=== PATIENT | male | born 1945 | race Two or more races ===

== ENCOUNTER 2023-10-10 14:47 | Inpatient (IN) | payer MEDICARE, OTHER ==
[~2023-10-10] VITALS: Ht 165.1 cm; Wt 50.3 kg
--- NOTE | 2023-10-10 14:50 | NUR ---
bibpa frm [facility] more altered than normal. unknown last known well. abdominal pain 05/21.
[2023-10-10] MEDS ORDERED: MORPHINE SULFATE INJ 4 MG/ML DISP.SYRIN ONE (15:19)
[2023-10-10] MEDS ORDERED: ONDANSETRON HCL/PF 4 MG/2 ML VIAL ONE (15:19)
[2023-10-10] MEDS: ONDANSETRON HCL/PF 4 MG/2 ML VIAL IVP ONE (15:31)
[2023-10-10] MEDS: MORPHINE SULFATE INJ 2 MG/ML DISP.SYRIN IV ONE (15:33)
[2023-10-10 15:34] LABS: BASOPHILS % (AUTO) 0.3 % (0.0-2.0); HEMATOCRIT 35 % (39-51); HEMOGLOBIN 11.3 g/dL (13.5-17.5); LYMPHOCYTES # (AUTO) 0.7 K/uL (0.8-4.8); LYMPHOCYTES % (AUTO) 6.2 % (20.0-44.0); MEAN CORPUSCULAR HEMOGLOBIN 28 PG (26.0-33.0); MEAN CORPUSCULAR HGB CONC 32 g/dl (31.0-36.0); MEAN CORPUSCULAR VOLUME 87 fL (80-96); MONOCYTES # (AUTO) 0.8 K/uL (0.1-1.30); MONOCYTES % (AUTO) 7.1 % (2.0-12.0); NEUTROPHILS # (AUTO) 9.6 K/uL (1.8-8.9); NEUTROPHILS % (AUTO) 86.4 % (43.0-81.0); PLATELET COUNT (AUTO) 228 K/uL (150-450); RED BLOOD CELL COUNT(AUTO) 4.03 MIL/uL (4.5-6.0); RED CELL DISTRIBUTION WIDTH 14.5 % (11.5-15.0); WHITE BLOOD COUNT (AUTO) 11.2 K/uL (4.3-11.0)
--- NOTE | 2023-10-10 15:35 | NUR ---
BLOOD DRAWN AND SENT TO LAB
--- NOTE | 2023-10-10 16:10 | NUR ---
URINE SAMPLE SENT TO LAB
[2023-10-10 16:53] LABS: APPEARANCE,URINE Slightly Cloudy (CLEAR); BILIRUBIN,URINE Negative (NEGATIVE); BLOOD, URINE Moderate Ery/uL (NEGATIVE); COLOR,URINE YELLOW (YELLOW); KETONES,URINE Negative (NEGATIVE); LEUKOCYTE ESTERASE ,URINE Small (NEGATIVE); NITRITE, URINE Negative (NEGATIVE); PH,URINE 5.5 (5.0-8.0); PROTEIN,URINE Negative (NEGATIVE); UGLUCOSE Negative (NEGATIVE); UROBILINOGEN,URINE 0.2 EU/dL (0.2)
[2023-10-10 17:00] LABS: WBC,URINE 21-50 /HPF (0-3)
--- NOTE | 2023-10-10 17:00 | NUR ---
INSERTED JOSEPH CATH FR-16 DRAINING TO A YELLOW CLEAR URINE OUTPUT, 1200MLS IN AMOUNT.
[2023-10-10 17:02] LABS: ADD URINE CULTURE YES; BACTERIA,URINE 1+ /HPF (None Seen); MUCUS,URINE Few /LPF (None Seen); SPERM,URINE Rare /HPF (None Seen); SQUAMOUS EPITHELIAL CELL,UR 0-2 /HPF (None Seen)
--- NOTE | 2023-10-10 17:07 | NUR ---
MOVE SHEET SUBMITTED.
[2023-10-10 17:12] LABS: ALANINE AMINOTRANSFERASE 16 U/L (12-78); ALBUMIN 2.3 g/dL (3.4-5.0); ALCOHOL, BLOOD < 3 mg/dL (0-10); ALKALINE PHOSPHATASE 79 U/L (46-116); ASPARTATE AMINOTRANSFERASE 13 U/L (15-37); BILIRUBIN,DIRECT 0.2 mg/dL (0.0-0.2); BILIRUBIN,TOTAL 0.4 mg/dL (0.2-1.0); CALCIUM, SERUM 8.4 mg/dL (8.5-10.1); CARBON DIOXIDE 19 mmol/L (21-32); CHLORIDE 103 mmol/L (98-107); GLUCOSE 123 mg/dL (74-106); LIPASE 65 U/L (16-77); POTASSIUM 6.2 mmol/L (3.5-5.1); SODIUM SERUM 139 mmol/L (136-145); TOTAL PROTEIN, SERUM 7.8 g/dL (6.4-8.2)
[2023-10-10 17:12] LABS: AMPHETAMINE, URINE NEGATIVE (NEGATIVE); BARBITURATE, URINE NEGATIVE (NEGATIVE); BENZODIAZEPINE, URINE NEGATIVE (NEGATIVE); CANNABINOID, URINE NEGATIVE (NEGATIVE); COCCAINE, URINE NEGATIVE (NEGATIVE); OPIATE, URINE NEGATIVE (NEGATIVE); PHENCYCLIDINE SCREEN,URINE NEGATIVE (NEGATIVE)
[2023-10-10 17:13] LABS: ACETAMINOPHEN <10 ug/ml (10-30)
[2023-10-10] MEDS ORDERED: CEFTRIAXONE 1GM BAG (ER ONLY) 50 ML IV ONE (17:17)
[2023-10-10] MEDS: CEFTRIAXONE 1GM BAG (ER ONLY) 1 GM/50 ML PIGGYBACK IV ONE (17:20)
[2023-10-10] MEDS ORDERED: AMLO10TA4 PO (17:21)
[2023-10-10] MEDS ORDERED: CARV6.25 PO (17:21)
[2023-10-10] MEDS ORDERED: ONDA4TAB5 PO (17:21)
[2023-10-10] MEDS ORDERED: DONE5TAB34 PO (17:21)
[2023-10-10] MEDS ORDERED: ACET-868 PO (17:21)
[2023-10-10] MEDS ORDERED: OLAN5TAB3 PO (17:21)
--- NOTE | 2023-10-10 17:22 | NUR ---
[facility] CALLED, DEVELOPMENT LEAD PAGED.
[2023-10-10 17:25] LABS: CREATININE 14.7 mg/dL (0.6-1.3); UREA NITROGEN, BLOOD 175 mg/dL (7-18)
--- NOTE | 2023-10-10 17:25 | NUR ---
GOT BED 117-2 ADMITTING INFORMED.
[2023-10-10] MEDS ORDERED: CALCIUM CHLORIDE 1,000 MG/10 ML DISP.SYRIN ONE (17:26)
[2023-10-10] MEDS ORDERED: DEXTROSE 50%-WATER 50 ML DISP.SYRIN ONE (17:26)
[2023-10-10] MEDS ORDERED: INSULIN REGULAR, HUMAN 100 UNIT/ML 10 ML VIAL ONE (17:27)
--- NOTE | 2023-10-10 17:30 | NUR ---
ADDITIONAL URINE OUTPUT 1100MLS.
[2023-10-10] MEDS: INSULIN REGULAR, HUMAN 100 UNIT/ML 10 ML VIAL IV ONE (17:31)
[2023-10-10] MEDS: DEXTROSE 50%-WATER 50 ML DISP.SYRIN IV ONE (17:31)
[2023-10-10] MEDS: CALCIUM CHLORIDE 1,000 MG/10 ML DISP.SYRIN IV ONE (17:35)
--- NOTE | 2023-10-10 17:45 | NUR ---
PATIENT TAKEN TO CT VIA DAVE
[2023-10-10] MEDS ORDERED: SODIUM ZIRCONIUM CYCLOSILICATE 10 GM POWD.PACK ONE (17:47)
--- NOTE | 2023-10-10 18:00 | NUR ---
ADDITIONAL URINE OUTPUT 1000MLS
[2023-10-10] MEDS: SODIUM ZIRCONIUM CYCLOSILICATE 10 GM POWD.PACK PO ONE (18:10)
--- NOTE | 2023-10-10 18:18 | NUR ---
REPORT GIVEN TO YOGESH REYES ROOM 117-2 FOR CHRIS
--- NOTE | 2023-10-10 18:20 | NUR ---
RN NOTE RECEIVED REPORT FROM ER NURSE MARCO ANTONIO, AWAITING PT ARRIVAL TO UNIT.
[2023-10-10] MEDS ORDERED: ONDANSETRON HCL/PF 4 MG/2 ML VIAL IVP PRN (18:30)
[2023-10-10] MEDS ORDERED: MAGNESIUM HYDROXIDE 30 ML UDC PO PRN (18:30)
[2023-10-10] MEDS ORDERED: Z GUARD REMEDY 4 OZ OINT TP PRN (18:30)
[2023-10-10] MEDS ORDERED: MAG HYDROX/AL HYDROX/SIMETH 30 ML UDC PO PRN (18:30)
[2023-10-10] MEDS ORDERED: ACETAMINOPHEN 325 MG TABLET PO PRN (18:30)
--- NOTE | 2023-10-10 18:30 | NUR ---
PATIENT TRANSFERED AND ADMITTED PER [facility]S PROTOCOL
--- NOTE | 2023-10-10 18:45 | NUR ---
RN NOTE RECEIVED PT IN ROOM 117-2 FROM ER VIA [employer]. PT A/O X1. ON ROOM AIR, TOLERATING WELL, SATING 99%. NO S/S OF SOB NOTED AT THIS TIME. PT PLACED ON TELE MONITOR, CURRENTLY READING SR, HR 66 BPM. IV ACCESS ON LFA 20G, PATENT AND INTACT, SL. PT WITH JOSEPH CATH IN PLACE DRAINING URINE VIA GRAVITY. V/S STABLE; BP 127/73, HR 67, TEMP 97.5, RR 12, O2 SAT 99%. SKIN CHECKED, INTACT. PT CLEAN AND DRY. SAFETY MEASURES IMPLEMENTED, BED IN LOWEST LOCKED POSITION, BED ALARM ON, SIDE RAILS UP X3, CALL LIGHT WITHIN REACH. WILL ENDORSE TO ONCOMING SHIFT FOR CHRIS.
[2023-10-10] MEDS: SODIUM POLYSTYRENE SULFONATE 15 G/60 ML BOTTLE PO ONE (19:00)
--- NOTE | 2023-10-10 19:00 | NUR ---
RN NOTE 1830 KAYEXELATE NOT GIVEN BECAUSE PT UNABLE TO STAY ALERT TO SWALLOW.
--- NOTE | 2023-10-10 19:40 | NUR ---
HUMAN RESOURCE OFFICER OPENING NOTE RECEIVED PT IN BED, EYE CLOSE, EASILY AROUSE BY VERBAL/ TACTILE STIMULI. A/O X1, WITH CONFUSION, UNABLE TO ANSWER SIMPLE QUESTIONS. CURRENTLY ON ROOM AIR, TOLERATING WELL, SATING 98%. NO S/S OF SOB NOTED AT THIS TIME. ON TELE MONITOR, CURRENTLY READING SR, HR 74BPM. WITH IV ACCESS ON LFA 20G, PATENT AND INTACT, INFUSING 1/2 NS @125ML/HR. ON JOSEPH CATH IN PLACE DRAINING URINE VIA GRAVITY. ALL SAFETY MEASURES IMPLEMENTED, BED IN LOWEST LOCKED POSITION, BED ALARM ON, SIDE RAILS UP X3, CALL LIGHT WITHIN REACH. WILL CONTINUE CURRENT PLAN OF CARE.
[2023-10-10 20:00] VITALS: BP 123/68; TEMP 98; O2SAT 95
[2023-10-10] MEDS: IV 1/2NS 1000 ML 1,000 ML IV PRN (22:29)
[2023-10-11] VITALS: BP 118/80; TEMP 98.2; O2SAT 97
[2023-10-11 06:00] VITALS: BP 153/86; TEMP 97.9; O2SAT 98
[2023-10-11 06:40] LABS: BASOPHILS % (AUTO) 0.2 % (0.0-2.0); EOSINOPHILS % (AUTO) 0.1 % (0.0-6.0); HEMATOCRIT 36 % (39-51); HEMOGLOBIN 11.6 g/dL (13.5-17.5); LYMPHOCYTES # (AUTO) 0.9 K/uL (0.8-4.8); MEAN CORPUSCULAR HEMOGLOBIN 28 PG (26.0-33.0); MEAN CORPUSCULAR HGB CONC 32 g/dl (31.0-36.0); MEAN CORPUSCULAR VOLUME 86 fL (80-96); MONOCYTES # (AUTO) 0.5 K/uL (0.1-1.30); MONOCYTES % (AUTO) 6.2 % (2.0-12.0); NEUTROPHILS # (AUTO) 6.3 K/uL (1.8-8.9); NEUTROPHILS % (AUTO) 81.5 % (43.0-81.0); PLATELET COUNT (AUTO) 239 K/uL (150-450); RED BLOOD CELL COUNT(AUTO) 4.17 MIL/uL (4.5-6.0); RED CELL DISTRIBUTION WIDTH 14.7 % (11.5-15.0); WHITE BLOOD COUNT (AUTO) 7.8 K/uL (4.3-11.0)
[2023-10-11 06:55] LABS: CALCIUM, SERUM 9.3 mg/dL (8.5-10.1); CARBON DIOXIDE 20 mmol/L (21-32); CHLORIDE 107 mmol/L (98-107); GLUCOSE 77 mg/dL (74-106); MAGNESIUM 3.2 mg/dL (1.8-2.4); PHOSPHORUS 7.2 mg/dL (2.5-4.9); POTASSIUM 4.9 mmol/L (3.5-5.1); SODIUM SERUM 144 mmol/L (136-145)
[2023-10-11 06:59] LABS: CREATININE 8.4 mg/dL (0.6-1.3); UREA NITROGEN, BLOOD 125 mg/dL (7-18)
--- NOTE | 2023-10-11 07:04 | NUR ---
SEWER AND CUTTER FINGER BUFF MATERIAL CLOSING NOTE PATIENT IN BED, AWAKE, REMAINS STABLE WITHIN THE SHIFT. A/O X1, WITH CONFUSION, TOLERATING ROOM AIR, TOLERATING WELL, SATING 97%. NO SOB NOTED AT THIS TIME. ON TELE MONITOR, CURRENTLY READING SR, HR 78BPM. INTACT IV ACCESS ON LFA 20G, PATENT AND INTACT, INFUSING 1/2 NS @125ML/HR. ON JOSEPH CATH IN PLACE DRAINING URINE VIA GRAVITY [id number]. ALL DUE MEDS GIVEN ORDERED. CLEANED AND REPOSITIONED. KEPT BED IN LOWEST LOCKED POSITION, BED ALARM ON, SIDE RAILS UP X3, CALL LIGHT WITHIN REACH. WILL ENDORSE TO INCOMING SHIFT RN.
--- NOTE | 2023-10-11 07:05 | NUR ---
RN OPENING NOTES RECEIVED PT IN BED, A/O X1. ON ROOM AIR, TOLERATING WELL. NO S/S OF SOB NOTED AT THIS TIME. ON TELE MONITOR, CURRENTLY READING SR, HR 72 BPM. IV ACCESS ON LFA 20G, PATENT AND INTACT, CURRENTLY RUNNING 1/2 NS @ 125ML/HR. WITH JOSEPH CATH IN PLACE DRAINING URINE VIA GRAVITY. SAFETY MEASURES IMPLEMENTED, BED IN LOWEST LOCKED POSITION, BED ALARM ON, SIDE RAILS UP X3, CALL LIGHT WITHIN REACH. WILL CONTINUE PLAN OF CARE.
[2023-10-11] MEDS ORDERED: PANTOPRAZOLE 40 MG TABLET.DR PO SCH (07:30)
[2023-10-11 08:00] VITALS: BP 149/93; TEMP 98.3; O2SAT 94
[2023-10-11] MEDS: PANTOPRAZOLE 40 MG VIAL IV SCH (09:48)
[2023-10-11] MEDS ORDERED: ACETAMINOPHEN 325 MG TABLET PO PRN (13:00)
[2023-10-11] MEDS ORDERED: Medication Not On Formulary EA (Ondansetron Hcl (Zofran) 4 MG) PO PRN (13:00)
[2023-10-11 16:00] VITALS: BP 128/83; TEMP 98.3; O2SAT 97
[2023-10-11] MEDS: CARVEDILOL 6.25 MG TABLET PO SCH (16:19)
[2023-10-11] MEDS: CEFTRIAXONE 1 G in IV D5W 50 ML IV SCH (16:19)
--- NOTE | 2023-10-11 18:38 | NUR ---
RN CLOSING NOTES PT IN BED, A/O X2. ON ROOM AIR, SATING 95%, TOLERATING WELL. NO S/S OF SOB NOTED AT THIS TIME. IV ACCESS ON LFA 20G, PATENT AND INTACT, CURRENTLY RUNNING 1/2 NS @ 125ML/HR. WITH JOSEPH CATH IN PLACE DRAINING YELLOW URINE VIA GRAVITY. SAFETY MEASURES MAINTAINED, BED IN LOWEST LOCKED POSITION, BED ALARM ON, SIDE RAILS UP X3, CALL LIGHT WITHIN REACH. ALL MEDS GIVEN ORDERED, ALL NEEDS ATTENDED TOO. WILL ENDORSE TO ONCOMING SHIFT FOR CHRIS.
--- NOTE | 2023-10-11 19:20 | NUR ---
RN OPENING NOTES RECEIVED PATIENT IN BED, AWAKE, AOX1, ON MED/SURG CARE, ON RA SATING WELL, IV ACCESS ON LFA G#20 CURRENTLY RUNNING 1/2 NS @ 125ML/HR. SAFETY MEASURES IMPLEMENTED, BED IN LOWEST AND LOCK POSITION, BED ALARM ON, SIDE RAILS UPX2, CALL LIGHT WITHIN REACH, PLAN OF CARE ONGOING.
[2023-10-11] MEDS: DONEPEZIL 5 MG TABLET PO SCH (21:52)
[2023-10-11] MEDS: OLANZAPINE 5 MG TABLET PO SCH (21:52)
[2023-10-11] MEDS: ZOLPIDEM TARTRATE 5 MG TABLET PO PRN (23:39)
[2023-10-12] VITALS (7 sets, daily range): BP systolic 115–143; BP diastolic 74–90; TEMP 97.5–98.2; O2SAT 92–97
--- NOTE | 2023-10-12 07:00 | NUR ---
RN CLOSING NOTES PATIENT IN BED, AWAKE AOX2-3 WITH EPISODES OF CONFUSION, NO COMPLAINTS OF PAIN, NO SOB NOTED DURING THE SHIFT, PATIENT PULLED HIS IV, INSERTED NEW LINE ON R WRIST CURRENTLY RUNNING 1/2 NS @ 125 ML/ HR.ALL DUE MEDS GIVEN, MORNING CARE RENDERED, SAFETY MEASURES IMPLEMENTED, BED IN LOWEST AND LOCK POSITION, BED ALARM ON, CALL LIGHT AND TABLE WITHIN REACH, PLAN OF CARE ONGOING, WILL ENDORSE TO ONCOMING NURSE FOR CHRIS.
[2023-10-12 07:09] LABS: BASOPHILS % (AUTO) 0.3 % (0.0-2.0); EOSINOPHILS % (AUTO) 0.3 % (0.0-6.0); HEMATOCRIT 35 % (39-51); HEMOGLOBIN 11.3 g/dL (13.5-17.5); LYMPHOCYTES # (AUTO) 0.8 K/uL (0.8-4.8); LYMPHOCYTES % (AUTO) 18.1 % (20.0-44.0); MEAN CORPUSCULAR HEMOGLOBIN 28 PG (26.0-33.0); MEAN CORPUSCULAR HGB CONC 32 g/dl (31.0-36.0); MEAN CORPUSCULAR VOLUME 87 fL (80-96); MONOCYTES # (AUTO) 0.4 K/uL (0.1-1.30); MONOCYTES % (AUTO) 8.2 % (2.0-12.0); NEUTROPHILS # (AUTO) 3.2 K/uL (1.8-8.9); NEUTROPHILS % (AUTO) 73.1 % (43.0-81.0); PLATELET COUNT (AUTO) 226 K/uL (150-450); RED BLOOD CELL COUNT(AUTO) 4.08 MIL/uL (4.5-6.0); RED CELL DISTRIBUTION WIDTH 14.6 % (11.5-15.0); WHITE BLOOD COUNT (AUTO) 4.3 K/uL (4.3-11.0)
--- NOTE | 2023-10-12 07:45 | NUR ---
RN OPENING NOTE RECEIVED PATIENT IN BED, AWAKE AOX2-3 WITH EPISODES OF CONFUSION, NO COMPLAINTS OF PAIN, ON RA NO SOB OR DISTRESS NOTED, IV ACCESS ON R WRIST CURRENTLY RUNNING 1/2 NS @ 125 ML/ HR. SAFETY MEASURES IMPLEMENTED, BED IN LOWEST AND LOCK POSITION, BED ALARM ON, CALL LIGHT AND TABLE WITHIN REACH, PLAN OF CARE ONGOING, WILL CONTINUE POC.
[2023-10-12 08:01] LABS: ALANINE AMINOTRANSFERASE 17 U/L (12-78); ALKALINE PHOSPHATASE 77 U/L (46-116); ASPARTATE AMINOTRANSFERASE 19 U/L (15-37); BILIRUBIN,TOTAL 0.4 mg/dL (0.2-1.0); CALCIUM, SERUM 8.4 mg/dL (8.5-10.1); CARBON DIOXIDE 24 mmol/L (21-32); CHLORIDE 111 mmol/L (98-107); CREATININE 3.2 mg/dL (0.6-1.3); GLUCOSE 109 mg/dL (74-106); MAGNESIUM 2.4 mg/dL (1.8-2.4); PHOSPHORUS 3.8 mg/dL (2.5-4.9); POTASSIUM 4.3 mmol/L (3.5-5.1); SODIUM SERUM 146 mmol/L (136-145); TOTAL PROTEIN, SERUM 7.7 g/dL (6.4-8.2); UREA NITROGEN, BLOOD 73 mg/dL (7-18)
[2023-10-12] MEDS: ASPIRIN 81 MG TAB.CHEW PO SCH (08:37)
[2023-10-12] MEDS: AMLODIPINE BESYLATE 10 MG TABLET PO SCH (08:38)
[2023-10-12 09:24] LABS: CREATINE KINASE, TOTAL 358 U/L (39-308)
--- NOTE | 2023-10-12 16:50 | NUR ---
RN NOTE PT'S HEART RATE UNABLE TO BE READ ACCURATELY ON VITALS MACHINE MONITOR. PT'S HEART RATE WAS COUNTED VIA RADIAL PULSE. THIS RN NOTED THAT THE PULSE FELT IRREGULAR AND HAD ANOTHER RN, JEY, VERIFY REGULARITY. JEY REYES NOTED IRREGULARITY WELL. HERMAN NOTIFIED OF IRREGULARITY. AWAITING RESPONSE TO NOTIFICATION OF IRREGULARITY. Addendum: 10/12/23 at 1759 by SOFI BENJAMIN RN PT DENIES SOB OR CHEST PAIN AND DOES NOT EXHIBIT ANY SYMPTOMS OF DISTRESS AT THIS MOMENT. PT REMAINS ASYMPTOMATIC AT THIS TIME.
[2023-10-12] MEDS: ENSURE ENLIVE 237 ML LIQUID (VANILLA) PO SCH (17:15)
--- NOTE | 2023-10-12 17:42 | NUR ---
RN NOTE CHARGE NURSE MADE AWARE OF SITUATION AND PUT IN ORDER FOR STAT EKG. PT HAS ARRHYTHMIA AND GOES BETWEEN ATRIAL FIBRILLATION AND SINUS TACHYCARDIA. THIS RN HAS NOT GOTTEN A RESPONSE FROM DR SUTTON. ATTEMPTED TO CONTACT DR SUTTON VIA PHONE CALL TO [employer]. TRANSPORTATION WORKER FROM [employer] INFORMED THIS RN THAT SHE WILL NOTIFY DR SUTTON AND SHE WILL CALL BACK.
--- NOTE | 2023-10-12 18:01 | NUR ---
RN NOTE PT WAS GIVEN SCHEDULED 6.[address] SUTTON RESPONDED AND ORDERED STAT TROPONIN AND TIMED TROPONIN IN 6 HOURS. PT REMAINS AWAKE AND RESPONSIVE. CONTINUES TO DENY CHEST PAIN AND SOB AND DISTRESS.
--- NOTE | 2023-10-12 18:55 | NUR ---
RN OPENING NOTE PATIENT IN BED, AWAKE AOX2-3 WITH EPISODES OF CONFUSION, NO COMPLAINTS OF PAIN, ON RA NO SOB OR DISTRESS NOTED, IV ACCESS ON R WRIST CURRENTLY RUNNING 1/2 NS @ 125 ML/ HR. pt on external arabic teacher with irregular rhythm and hr. goes from afib to tachycardia. aware. troponin ordered. SAFETY MEASURES IMPLEMENTED, BED IN LOWEST AND LOCK POSITION, BED ALARM ON, SIDE RAILS UPX2. SCHEDULED MEDICATIONS ADMINISTERED. PT WAS TURNED/REPOSITIONED PER PROTOCOL. ALL NEEDS ATTENDED/ANTICIPATED. WILL ENDORSE CHRIS TO INCOMING RN. Addendum: 10/12/23 at 1925 by SOFI BENJAMIN RN DISRREGARD. THIS IS CLOSING NOTE
--- NOTE | 2023-10-12 19:18 | NUR ---
RN NOTE RECEIVED PT FOR CONTINUITY OF CARE. PATIENT A/OX1 IN NO S/SX OF ACUTE DISTRESS AT THIS TIME; CURRENTLY ON ROOM AIR; WITH 02 SAT >95% AT THIS TIME. WITH IV ACCESS PATENT, INTACT AND FLUSHING WELL. WITH IV FLUIDS OF 1/2NS@10MLS/HR. WILL ENSURE SAFETY MEASURES WITHIN THE SHIFT. PATIENT BED ALARM IS ON. HEAD OF BED ELEVATED. BED IS LOCKED, IN LOWEST POSITION AND SIDE RAILS UP. CALL LIGHT WITHIN REACH OF THE PATIENT. WILL CONTINUE TO MONITOR AND REASSESS FOR ANY CHANGES AND WILL CARRY OUT ANY ONGOING AND ACTIVE MD ORDER.
--- NOTE | 2023-10-12 20:40 | NUR ---
RN NOTE PT NOTED TO BE RUNNING SR->ST AND AFIB UNSUSTAINED, NO CHEST PAIN. THIS HAS BEEN HAPPENING FROM AM SHIFT, WHERE IN EKG DONE ST NOTED, TROPONIN DONE Q6H LAST ONE 49. NOTIFIED KADE BACON ( DEEPA BALTAZAR) ROSSY. ASSOCIATE BIOLOGICAL SALES AWARE. Addendum: 10/12/23 at 2109 by LUCIA VELASCO RN KADE BACON CALLED BACK (Yana RUBIO) STATUS UPDATE GIVEN. ACKNOWLEDGED CONCERN, NO NEW ORDERS. CARDIO FOLLOWING AND FOR NEURO CONSULT. NEED TO FOLLOW THROUGH WITH ROUNDING AND CARDIO IN THE MORNING FOR FURTHER PLAN. RN ACKNOWLEDGED. WILL CONTINUE TO MONITOR.
[2023-10-12] MEDS ORDERED: HEPARIN SODIUM, PORCINE 5000 UNITS/1 ML VIAL SQ SCH (21:00)
[2023-10-13 04:00] VITALS: BP 119/71; TEMP 98; O2SAT 97
--- NOTE | 2023-10-13 06:41 | NUR ---
RN NOTE PATIENT REMAINS IN ROOM IN NO SIGNS OF RESPIRATORY DISTRESS, PATIENT STILL ON ROOM AIR; TOLERATING WELL SATURATING @ >95% SP02. SR ON MONITOR. SAFETY MEASURES IMPLEMENTED, BED IN LOWEST POSITION, LOCKED, SIDE RAILS UP, CALL LIGHT WITHIN REACH. ALL NEEDS AND ORDERS ADDRESSED DURING THE SHIFT. IV ACCESS MAINTAINED INTACT, SECURED AND FLUSHING WELL. ALL DUE MEDS GIVEN ORDERED & SCHEDULED ; PATIENT TOLERATED WELL. PATIENT KEPT CLEAN AND COMFORTABLE WITHIN THE SHIFT. PATIENT ENDORSED TO INCOMING SHIFT RN WITH STABLE VITAL SIGN AND FOR CONTINUITY OF CARE.
--- NOTE | 2023-10-13 07:10 | NUR ---
RN OPENING NOTES RECEIVED PT IN BED, AWAKE, A/O X1. ON ROOM AIR, TOLERATING WELL. NO S/S OF SOB NOTED AT THIS TIME. OM TELE MONITOR CURRENTLY READING SR, HR 71 BPM. IV ACCESS ON RIGHT WRIST 22G, PATENT AND INTACT, CURRENTLY RUNNING 1/2 NS @ 125 ML/HR. WITH JOSEPH CATH IN PLACE DRAINING URINE VIA GRAVITY. SAFETY MEASURES IMPLEMENTED, BED IN LOWEST LOCKED POSITION, SIDE RAILS UP X3, BED ALARM ON, CALL LIGHT WITHIN REACH. WILL CONTINUE PLAN OF CARE.
[2023-10-13 07:48] LABS: BASOPHILS % (AUTO) 0.6 % (0.0-2.0); EOSINOPHILS % (AUTO) 0.5 % (0.0-6.0); HEMATOCRIT 37 % (39-51); HEMOGLOBIN 11.6 g/dL (13.5-17.5); LYMPHOCYTES % (AUTO) 37.5 % (20.0-44.0); MEAN CORPUSCULAR HEMOGLOBIN 28 PG (26.0-33.0); MEAN CORPUSCULAR HGB CONC 32 g/dl (31.0-36.0); MEAN CORPUSCULAR VOLUME 88 fL (80-96); MONOCYTES # (AUTO) 0.3 K/uL (0.1-1.30); MONOCYTES % (AUTO) 11.5 % (2.0-12.0); NEUTROPHILS # (AUTO) 1.3 K/uL (1.8-8.9); NEUTROPHILS % (AUTO) 49.9 % (43.0-81.0); PLATELET COUNT (AUTO) 175 K/uL (150-450); RED BLOOD CELL COUNT(AUTO) 4.19 MIL/uL (4.5-6.0); RED CELL DISTRIBUTION WIDTH 14.5 % (11.5-15.0); WHITE BLOOD COUNT (AUTO) 2.7 K/uL (4.3-11.0)
[2023-10-13 08:00] VITALS: BP 124/75; TEMP 98.8; O2SAT 97
[2023-10-13 08:09] LABS: CARBON DIOXIDE 25 mmol/L (21-32); CHLORIDE 108 mmol/L (98-107); CREATININE 2.1 mg/dL (0.6-1.3); GLUCOSE 108 mg/dL (74-106); MAGNESIUM 2.4 mg/dL (1.8-2.4); PHOSPHORUS 2.7 mg/dL (2.5-4.9); POTASSIUM 3.9 mmol/L (3.5-5.1); SODIUM SERUM 142 mmol/L (136-145); UREA NITROGEN, BLOOD 50 mg/dL (7-18)
[2023-10-13 08:32] LABS: EOSINOPHILS % (MANUAL) 1 % (0-4); LYMPHOCYTES % (MANUAL) 37 % (16-48); MONOCYTES % (MANUAL) 11 % (0-11.0); NEUTROPHILS % (MANUAL) 51 (42-76); PLATELET ESTIMATE ADEQUATE
[2023-10-13 08:33] LABS: ANISOCYTOSIS 1+
[2023-10-13] MEDS: PANTOPRAZOLE 40 MG TABLET.DR PO SCH (08:35)
[2023-10-13 09:08] LABS: PTH, INTACT 51 pg/mL (15-65)
[2023-10-13 12:00] VITALS: BP 95/61; TEMP 98.2; O2SAT 95
[2023-10-13 16:00] VITALS: BP 116/70; TEMP 99.1; O2SAT 95
--- NOTE | 2023-10-13 18:40 | NUR ---
RN CLOSING NOTES PT IN BED, AWAKE, A/O X1-2. ON ROOM AIR, SATING 95%. TOLERATING WELL. NO S/S OF SOB NOTED AT THIS TIME. ON TELE MONITOR CURRENTLY READING SR, HR 72 BPM. IV ACCESS ON MARLEEN 20G, PATENT AND INTACT, CURRENTLY RUNNING 1/2 NS @ 125 ML/HR. WITH JOSEPH CATH IN PLACE DRAINING YELLOW URINE VIA GRAVITY. SAFETY MEASURES MAINTAINED, BED IN LOWEST LOCKED POSITION, SIDE RAILS UP X3, BED ALARM ON, CALL LIGHT WITHIN REACH. ALL MEDS GIVEN ORDERED, ALL NEEDS ATTENDED TOO. WILL ENDORSE TO ONCOMING SHIFT FOR CHRIS.
--- NOTE | 2023-10-13 19:45 | NUR ---
WASTEWATER TREATMENT PLANT SUPERVISOR OPENING NOTE PT RECEIVED IN BED AWAKE AND ALERT A/OX 1-2, PT IS CURRENTLY ON ROOM AIR SATURATING AT 95% WITH NO SIGNS OF SOB OR RESPIRATORY DISTRESS NOTED. PT IS ON TELE MONITORING WITH A READING OF SR WITH A PULSE RANGING IN THE 70'S. PT HAS OV ACCESS ON THE RAC 20G RUNNING NS @ 125 ML/HR WITH NO SIGNS OF DISLODGEMENT OR INFILTRATION. ALL SAFETY MEASURES IN PLACE, BED IS LOCKED ON THE LOWEST POSITION, WITH CALL LIGHT AND BEDSIDE TABLE WITHIN EASY REACH. PLAN OF CARE ONGOING.
[2023-10-13 20:00] VITALS: BP 101/55; TEMP 98.2; O2SAT 95
--- NOTE | 2023-10-13 22:00 | NUR ---
SENIOR UI WEB DEVELOPER NOTE NEW IV ADMINISTERED ON THE RIGHT AC #22G. FLUSHING WELL WITH BLOOD RETURN. PLAN OF CARE ONGOING
[2023-10-14 00:04] VITALS: BP 140/78; TEMP 98; O2SAT 100
[2023-10-14 04:00] VITALS: BP 123/73; TEMP 98.8; O2SAT 95
[2023-10-14 06:42] LABS: BASOPHILS % (AUTO) 0.6 % (0.0-2.0); EOSINOPHILS % (AUTO) 0.4 % (0.0-6.0); HEMATOCRIT 33 % (39-51); HEMOGLOBIN 10.4 g/dL (13.5-17.5); LYMPHOCYTES # (AUTO) 1.3 K/uL (0.8-4.8); LYMPHOCYTES % (AUTO) 38.5 % (20.0-44.0); MEAN CORPUSCULAR HEMOGLOBIN 28 PG (26.0-33.0); MEAN CORPUSCULAR HGB CONC 31 g/dl (31.0-36.0); MEAN CORPUSCULAR VOLUME 89 fL (80-96); MONOCYTES # (AUTO) 0.4 K/uL (0.1-1.30); MONOCYTES % (AUTO) 11.1 % (2.0-12.0); NEUTROPHILS # (AUTO) 1.6 K/uL (1.8-8.9); NEUTROPHILS % (AUTO) 49.4 % (43.0-81.0); PLATELET COUNT (AUTO) 170 K/uL (150-450); RED BLOOD CELL COUNT(AUTO) 3.74 MIL/uL (4.5-6.0); RED CELL DISTRIBUTION WIDTH 14.7 % (11.5-15.0); WHITE BLOOD COUNT (AUTO) 3.3 K/uL (4.3-11.0)
[2023-10-14 07:26] LABS: CALCIUM, SERUM 7.7 mg/dL (8.5-10.1); CARBON DIOXIDE 22 mmol/L (21-32); CHLORIDE 109 mmol/L (98-107); CREATININE 1.7 mg/dL (0.6-1.3); GLUCOSE 99 mg/dL (74-106); MAGNESIUM 2.2 mg/dL (1.8-2.4); PHOSPHORUS 2.2 mg/dL (2.5-4.9); POTASSIUM 3.8 mmol/L (3.5-5.1); SODIUM SERUM 140 mmol/L (136-145); UREA NITROGEN, BLOOD 32 mg/dL (7-18)
--- NOTE | 2023-10-14 07:27 | NUR ---
RN OPENING NOTES RECEIVED PT IN BED, AWAKE, A/O X1-2. ON ROOM AIR, TOLERATING WELL. NO S/S OF SOB NOTED AT THIS TIME. ON TELE MONITOR CURRENTLY READING SR, HR 73 BPM. IV ACCESS ON RAC 20G, PATENT AND INTACT, CURRENTLY RUNNING 1/2 NS @ 125 ML/HR. WITH JOSEPH CATH IN PLACE DRAINING YELLOW URINE VIA GRAVITY. SAFETY MEASURES IMPLEMENTED, BED IN LOWEST LOCKED POSITION, SIDE RAILS UP X3, BED ALARM ON, CALL LIGHT WITHIN REACH. WILL CONTINUE PLAN OF CARE.
--- NOTE | 2023-10-14 07:27 | NUR ---
STRAP SETTER CLOSING NOTE PT RECEIVED IN BED AWAKE AND ALERT A/OX 1-2, PT IS CURRENTLY ON ROOM AIR SATURATING AT 96% WITH NO SIGNS OF SOB OR RESPIRATORY DISTRESS NOTED. PT IS ON TELE MONITORING WITH A READING OF SR WITH A PULSE RANGING IN THE 70'S. PT HAS OV ACCESS ON THE RAC 20G RUNNING NS @ 125 ML/HR WITH NO SIGNS OF DISLODGEMENT OR INFILTRATION. ALL SAFETY MEASURES IN PLACE, BED IS LOCKED ON THE LOWEST POSITION, WITH CALL LIGHT AND BEDSIDE TABLE WITHIN EASY REACH. ALL MEDICATIONS GIVEN WITH ALL NEEDS MET. WILL GIVE REPORT TO AM NURSE FOR ONGOING CARE.
[2023-10-14 08:00] VITALS: BP 125/97; TEMP 97.9; O2SAT 100
[2023-10-14 08:34] VITALS: BP 125/97
[2023-10-14] MEDS: IV 1/2NS 1000 ML 1,000 ML IV PRN (11:45)
[2023-10-14] MEDS ORDERED: CEPH-570 PO ×2 (12:16→14:43)
--- NOTE | 2023-10-14 12:51 | NUR ---
RN NOTE PT MEDICALLY STABLE FOR D/C BACK TO [facility] PER DR SUTTON. REPORT GIVEN TO AMY SORIA AT FACILITY, CALL BACK NUMBER . AWAITING PT PICKUP FOR TRANSPORT BACK TO SNF.
--- NOTE | 2023-10-14 14:31 | NUR ---
RN NOTE AMBULANCE TEAM AT BEDSIDE FOR D/C BACK TO SNF. REPORT GIVEN TO AMBULANCE TEAM. PT A/O X2. ON ROOM AIR, TOLERATING WELL, SATING 100%. TELE MONITOR REMOVED. SKIN INTACT. JOSEPH CATH REMOVED. IV ACCESS ON RAC 20G REMOVED, INTACT AND NO BLEEDING. D/C INSTRUCTION GIVEN TO YANG AT SNF. BELONGINGS LIST CHECKED. PT STABLE FOR D/C BACK TO SNF PER MD.
[2023-10-15 09:10] LABS: *SPE A/G RATIO 0.5 (0.7-1.7); *SPE ALBUMIN 2.2 g/dL (2.9-4.4); *SPE ALPHA-1-GLOBULIN 0.5 g/dL (0.0-0.4); *SPE GLOBULIN, TOTAL 4.7 g/dL (2.2-3.9); *SPE M-SPIKE Not Observed g/dL (Not Observed); *SPE PROTEIN TOTAL 6.9 g/dL (6.0-8.5); *SPEGAMMA GLOBULIN 2.3 g/dL (0.4-1.8)
== END 2023-10-14 14:37 | DRG 682 ==
LOC: ER 15:12 → TELE1 18:37 → MEDSG1 10-11 11:07 → TELE1 10-12 21:08 → MEDSG1 10-14 10:56
PROVIDERS: ADMIT Student in an Organized Health Care Education/Training Program; ATTEND Student in an Organized Health Care Education/Training Program
DX: N17.0 Acute kidney failure with tubular necrosis (principal); G92.9 Unspecified toxic encephalopathy; I63.81 Other cerebral infarction due to occlusion or stenosis of small artery; J18.9 Pneumonia, unspecified organism; E44.0 Moderate protein-calorie malnutrition; J98.11 Atelectasis; F03.93 Unspecified dementia, unspecified severity, with mood disturbance; E87.20 Acidosis, unspecified; N32.0 Bladder-neck obstruction; N12 Tubulo-interstitial nephritis, not specified as acute or chronic; R33.9 Retention of urine, unspecified; N30.90 Cystitis, unspecified without hematuria; F32.A Depression, unspecified; I10 Essential (primary) hypertension; Z86.73 Personal history of transient ischemic attack (TIA), and cerebral infarction without residual deficits; Z79.899 Other long term (current) drug therapy; E87.5 Hyperkalemia; Y95 Nosocomial condition; M89.8X9 Other specified disorders of bone, unspecified site; I72.4 Aneurysm of artery of lower extremity; I48.91 Unspecified atrial fibrillation; D64.9 Anemia, unspecified; E83.39 Other disorders of phosphorus metabolism; K57.30 Diverticulosis of large intestine without perforation or abscess without bleeding
CPT/HCPCS: 36415; 70450-TC; 71045-TC; 76770-TC; 80048-TC; 80053-TC; 80076-TC; 81001; 82550-TC; 82553; 83690-TC; 83735-TC; 83970; 84100-TC; 84155; 84165; 84443-TC; 84484-TC; 85025-TC; 87040-TC; 87086-TC; 92526; 92611-TC; 93307-TC; 93880-TC; G0378; G0480; J0696; J1815; J2270; J2405; J2470; J3490; J7060